=== PATIENT | male | born 1985 | race Caucasian/White ===

== ENCOUNTER 2019-03-26 13:03 | Outpatient (CLI) | payer OTHER, SELFPAY ==
[2019-03-26 15:29] LABS: TSH (W/Ref FT4) 2.21 uIU/mL (0.36-3.74)
== END 2019-03-26 13:23 ==
PROVIDERS: PCP Physician Assistant; Visit Provider Physician Assistant
DX: E03.9 Hypothyroidism, unspecified (principal)
CPT/HCPCS: 36415; 84443